=== PATIENT | female | born 1965 | race Caucasian/White ===

== ENCOUNTER 2020-11-06 15:18 | Emergency (ER) | payer OTHER, SELFPAY ==
--- NOTE | ~2020-11-06 | CT_ITS ---
EXAMINATION: CT ABDOMEN AND PELVIS WITH CONTRAST CLINICAL INFORMATION: Right flank pain. Right lower quadrant pain x1 month. Rule out stone, appendectomy, malignancy COMPARISON: 08/26/2019 TECHNIQUE: Multidetector volumetric images were obtained from the superior aspect of the liver through the pubic symphysis following administration 85 mL of Omnipaque 350 intravenous contrast. Sagittal and coronal reformatted images were obtained on the technologist's workstation. Oral contrast: No This CT examination was performed using dose optimization techniques as appropriate, variously including the following: *Automated exposure control *Adjustment of mA and/or kV according to patient size (this includes techniques or standardized protocols for targeted exams where dose is matched to indication/reason for exam; i.e. extremities or head) *Use of iterative reconstruction technique DLP: 964 mGy-cm FINDINGS: LUNG BASES: The visualized lung bases are unremarkable. LIVER, GALLBLADDER, AND BILIARY TREE: The liver is normal in size, shape, and attenuation. No focal hepatic lesion or biliary ductal dilatation is present. Status post cholecystectomy. Calcifications anterior to the inferior tip of the right lobe of the liver could reflect sequelae of prior fat necrosis. PANCREAS: Unremarkable. SPLEEN: Unremarkable. ADRENAL GLANDS: Unremarkable. KIDNEYS AND URETERS: The kidneys are normal in size, shape, and attenuation. No hydronephrosis, hydroureter, or calculi seen. No perinephric stranding. There is a calcification the right pelvis in image 66/85 which is felt to be a phlebolith adjacent to the left ureter which is seen slightly more anteriorly on the same image. There is no resultant hydroureter. BLADDER: Unremarkable. GASTROINTESTINAL TRACT: The small and large bowel are unremarkable. The appendix is unremarkable. ABDOMINAL WALL: There is a large fat-containing umbilical hernia extending into the patient's pannus. There is skin thickening and soft tissue stranding of the pannus overlying the right inguinal region. Soft tissue infection such as cellulitis could have this appearance. LYMPH NODES: Normal. VASCULAR: Normal caliber abdominal aorta with moderate calcified atherosclerotic changes. Retroaortic left renal vein. PELVIC VISCERA: High density in the region of the cervix could represent hemorrhage within a nabothian cyst. This was present previously and is unchanged. Otherwise normal CT appearance of the uterus and ovaries for age. OSSEOUS STRUCTURES: No acute or suspicious osseous abnormality. CT/CT abdomen pelvis w con IMPRESSION: There is skin thickening and soft tissue tissue stranding of the pannus overlying the right inguinal region. This could reflect soft tissue infection such as cellulitis. It is incompletely imaged. No additional findings to explain right-sided abdominal pain. No evidence of obstructive uropathy. Status post cholecystectomy. No biliary ductal dilatation. No evidence of colitis or diverticulitis.
[2020-11-06 15:42] VITALS: BP 118/63; PULSE 99; RESP 16; TEMP 36.9; O2SAT 95; BMI 47.2
--- NOTE | 2020-11-06 16:45 | ED.GENADULT ---
HPI - General Adult General Chief complaint: Abdominal Pain Stated complaint: flank pain Time Seen by Provider: 11/06/20 16:25 Source: patient Mode of arrival: ambulatory Limitations: no limitations History of Present Illness HPI narrative: 55-year-old female who presents emergency department for evaluation of right flank pain x1 half months. Patient states that the pain has been constant but waxes and wanes in intensity from 3/10 to 8/10. Over the past 1-2 days, the pain is radiating to her right lower abdomen. She states that the pain is associated with nausea but no vomiting. She denied frequency covered urgency or dysuria. She denied any change in her weight. She has not noticed any change in her bowel movements. She states that she weighs because she thought the pain would get better however her daughter, who was in nursing school, insisted that she go to the emergency department to be seen today since the pain changed in character. Related Data Allergies Allergy/AdvReac Type Severity Reaction Status Date / Time Penicillins [PENICILLINS] Allergy Intermediate RASH Unverified 04/01/20 15:52 Sulfa (Sulfonamide Allergy Intermediate RASH Unverified 04/01/20 15:52 Antibiotics) [SULFA (SULFONAMIDE ANTIBIOTICS)] oxycodone [From PERCOCET] Allergy Unknown HIVES Unverified 04/01/20 15:52 Review of Systems Review of Systems: Yes all other systems are reviewed and are negative [facility] Past Medical History [facility] Narrative: Past surgical history cholecystectomy, ectopic and 2 laparoscopic surgeries. The patient denies tobacco, alcohol and drug use. Medical History Diabetes Hypercholesteremia Hypertension Umbilical hernia Social History Social History Advance Directives: No Advance Directives Information Provided: Yes Physical Exam Vital Signs: Vital Signs: Last Vital Signs Temp 98.4 F 11/06/20 15:42 Pulse 99 11/06/20 15:42 Resp 16 11/06/20 15:42 BP 118/63 11/06/20 15:42 Pulse Ox 95 11/06/20 15:42 Body Mass Index 47.2 Const: General: cooperative and healthy appearing Orientation/consciousness: oriented to person and oriented to place Limitations: no limitations HENMT: Head: Yes normal to inspection, Yes normocephalic and Yes atraumatic Ears: external ears normal General nose exam: Normal external nose present Face and sinus: Yes normal facial exam Mouth: Normal oral and palatal mucosa present Throat: Yes posterior oropharynx normal Eyes: Periorbital: periorbital findings normal Eyelids: Yes eyelids normal Conjunctivae: conjunctivae normal Sclerae: sclerae normal Corneas: corneas normal Pupils: Equal, round and reactive pupils present Direct Ophthalmoscopy: normal light reflex Neck: Neck: Yes full ROM, Yes no lymphadenopathy, Yes no meningeal signs, Yes trachea midline and Yes supple Chest: Chest palpation & inspection: normal inspection of the chest and normal palpation of entire chest wall Resp: Effort & Inspection: normal respiratory effort and able to speak in complete sentences Auscultation: clear to auscultation bilaterally Cardio: Rate: regular rate Rhythm: regular rhythm Heart sounds: S1 normal heart sound present, S2 normal heart sound present and no murmurs GI: Inspection: Yes Abdominal panniculus present and Yes other (Umbilical hernia, nontender) Palpation (GI): Soft to palpation, Tenderness to palpation present (GI) (Moderate right-sided abdominal tenderness), no guarding, not rigid and No hepatosplenomegaly present : General: Yes no CVA tenderness Back/Spine/Pelvis: Back: no CVA tenderness Cervical Spine: normal cervical lordosis Thoracic/Lumbar Spine: thoracic and lumbar spine normal to inspection Skin: Lesions: no lesions Rashes: no rashes Wounds: no wounds Neuro: General: oriented to person, oriented to place and no meningeal signs Cranial nerves: Yes CN's II-XII intact bilaterally and Yes Equal, round and reactive pupils present Cognition (Neuro): normal cognition Motor exam (neuro): 5/5 motor strength present throughout Extrem: General: Yes normal to inspection and Yes full ROM Psych: Appearance: well kempt Mental Status: mental status grossly normal Speech and movement: Normal speech and movement present Affect: normal affect Attitude: cooperative Thought process: Normal thought process present Thought content: Normal thought content present Course Course Course Narrative: 55-year-old female who presents emergency department for evaluation of right flank and right lower abdominal pain x1 half months. Physical examination did reveal right-sided abdominal tenderness. Laboratory evaluation revealed a slight elevation of the patient's AST and ALT of 79 and 80 with an elevated glucose of 180 otherwise was unremarkable. Urinalysis was negative. CT scan of the abdomen pelvis with IV contrast did not reveal a clear etiology for the patient's pain. The patient does have a fat containing umbilical hernia. Patient also had some thickening of the skin of the right inguinal area but on physical examination there is no evidence of cellulitis in this area. This time, I do not have a clear cause for the patient's pain. I did discuss this with her. The patient will need to follow-up with PCP for re-evaluation and may need referral to a process environmental technician to further evaluate her abdominal pain. The patient did get relief of her pain with IV Toradol. She refused the IV Zofran. Patient was discharged home advised to take Tylenol ibuprofen for pain and to return if her symptoms get worse or she develops any new symptoms that are concerning to her. Medical Decision Making Lab Data Result diagrams: 11/06/20 16:58 11/06/20 16:58 Labs: Lab Results 11/06/20 11/06/20 11/06/20 Range/Units 16:58 16:58 16:58 WBC 6.8 (4.8-10.8) X10*3/uL RBC 4.40 (4.20-5.50) X10*6/uL Hgb 13.4 (12.0-16.0) g/dl Hct 39.9 (37-47) % MCV 90.7 (80-98) fL MCH 30.5 (27.0-33.0) pg MCHC 33.6 (31.0-35.0) g/dl RDW 13.3 (11.0-16.0) % Plt Count 185 (160-400) X10*3/uL MPV 9.7 (9.4-12.3) fL Immature Gran % (Auto) 0.3 (0.0-0.4) % Neut % (Auto) 33.3 L (45-73) % Lymph % (Auto) 54.7 H (20-40) % [place] % (Auto) 8.1 (2-11) % Eos % (Auto) 3.0 (0-4) % Baso % (Auto) 0.6 (0-2) % Lymph # (Auto) 3.7 (1.2-4.9) X10*3/uL [place] # (Auto) 0.6 (0.1-1.2) X10*3/uL Eos # (Auto) 0.2 (0.0-0.4) X10*3/uL Baso # (Auto) 0.0 (0.0-0.2) X10*3/uL Abs Immat Gran (auto) 0.02 (0.00-0.03) X10*3/uL Absolute Neuts (auto) 2.3 (2.0-8.3) X10*3/uL Absolute Nucleated RBC 0.000 (0.0-0.012) X10*3/uL Nucleated RBC % (auto) 0.0 (0.0-0.2) /100WBC Sodium 140 (135-145) mmol/L Potassium 4.1 (3.3-5.1) mmol/L Chloride 102 (96-108) mmol/L Carbon Dioxide 27 (22-29) mmol/L Anion Gap 15 (12-20) BUN 16 (9-16) mg/dL Creatinine 0.72 (0.5-1.4) mg/dL Estim Creat Clear Calc 101.9 Estimated GFR > 60 Random Glucose 180 H (60-115) mg/dL Calcium 9.3 (8.4-10.2) mg/dL Total Bilirubin 0.8 (0.0-1.0) mg/dL AST 79 H (5-31) U/L ALT 80 H (0-31) U/L Alkaline Phosphatase 58 (39-117) U/L Total Protein 8.0 (6.5-8.0) g/dL Albumin 3.9 (3.5-5.0) g/dL Lipase 35 (8-78) U/L Urine Color YELLOW Urine Appearance CLEAR Urine pH 5.5 (5.0-8.0) Ur Specific [place] >= 1.030 H (1.005-1.025) Urine Protein NEG (NEG-TRACE) MG/DL Urine Glucose (UA) NEG (NEG) MG/DL Urine Ketones NEG (NEG) MG/DL Urine Blood NEG (NEG) Urine Nitrite NEG (NEG) Ur Leukocyte Esterase NEG (NEG) Discharge Plan Discharge Clinical Impression: Abdominal pain Qualifiers: Abdominal location: unspecified location Qualified Code(s): R10.9 - Unspecified abdominal pain Patient Disposition: Home, Self-Care Instructions: Abdominal Pain (ED) Additional Instructions: Your blood work was unremarkable except for slight elevation in 2 liver enzymes (AST and ALT). Your urinalysis was normal. The CT scan of your abdomen and pelvis did not reveal a clear cause for your abdominal pain. The radiologist did see the umbilical hernia and you only had fat in the hernia with no intestines in the hernia suggesting that the hernia is not the cause of your pain as well. Take ibuprofen 200 mg pills, 2 pills every 6 hours as needed for pain. Take Tylenol (acetaminophen) 500 mg pills, 2 pills every 4 to 6 hours as needed for pain. Follow-up with your doctor in 2 days. You may need referral to a process environmental technician to help further delineate your pain. I did write down the name of our process environmental technician who is on-call. Please return to the emergency department if your symptoms get worse or if you develop any symptoms that are concerning to you. Referrals: Lucian Solomon [Physician] - 2 weeks
[2020-11-06] MEDS: Ketorolac Tromethamine 30 MG/ML VIAL IVPUSH (16:59)
[2020-11-06] MEDS: 0.9 % Sodium Chloride 1,000 ML 999 ML IV (17:00)
--- NOTE | 2020-11-06 17:00 | PC.NURSE ---
iv inserted, labs drawn, pt medicated per order- pt refusing zofran at this time, urine obtained, will continue to monitor.
[2020-11-06 17:06] LABS: MANUAL DIFF FLAG NO
[2020-11-06 17:08] LABS: Basophils Percent Auto 0.6 % (0-2); Eosinophils Absolute Auto 0.2 X10*3/uL (0.0-0.4); Hematocrit 39.9 % (37-47); Hemoglobin 13.4 g/dl (12.0-16.0); Imm Gran Abs Auto 0.02 X10*3/uL (0.00-0.03); Imm Gran Pct Auto 0.3 % (0.0-0.4); Lymphocytes Absolute Auto 3.7 X10*3/uL (1.2-4.9); Lymphocytes Percent Auto 54.7 % (20-40); Mean Corpuscular HGB Conc 33.6 g/dl (31.0-35.0); Mean Corpuscular Hemoglobin 30.5 pg (27.0-33.0); Mean Corpuscular Volume 90.7 fL (80-98); Mean Platelet Volume 9.7 fL (9.4-12.3); Monocytes Absolute Auto 0.6 X10*3/uL (0.1-1.2); Monocytes Percent Auto 8.1 % (2-11); Neutrophils Absolute Auto 2.3 X10*3/uL (2.0-8.3); Neutrophils Percent Auto 33.3 % (45-73); Platelet Count 185 X10*3/uL (160-400); Red Cell Distribution Width 13.3 % (11.0-16.0); White Blood Count 6.8 X10*3/uL (4.8-10.8)
[2020-11-06 17:10] LABS: Glucose Urine UA NEG (NEG); Leukocyte Esterase Urine NEG (NEG); Nitrite Urine NEG (NEG); PH 5.5 (5.0-8.0); Specific Gravity - Urine >= 1.030 (1.005-1.025); Urine Blood NEG (NEG); Urine Ketones NEG (NEG); Urine Protein NEG (NEG-TRACE)
[2020-11-06 17:11] LABS: Appearance Urine CLEAR; Color Urine YELLOW
[2020-11-06 17:30] LABS: Alanine Aminotransferase 80 U/L (0-31); Albumin Level 3.9 g/dL (3.5-5.0); Alkaline Phosphatase 58 U/L (39-117); Anion Gap 15 (12-20); Aspartate Amino Transferase 79 U/L (5-31); Bilirubin Total 0.8 mg/dL (0.0-1.0); Blood Urea Nitrogen 16 mg/dL (9-16); Calcium 9.3 mg/dL (8.4-10.2); Carbon Dioxide 27 mmol/L (22-29); Chloride 102 mmol/L (96-108); Creatinine Clr Calc Pharmacy 101.9; Estimated Glomerular Filt Rate > 60; Glucose Random 180 mg/dL (60-115); Lipase 35 U/L (8-78); Potassium 4.1 mmol/L (3.3-5.1); Sodium 140 mmol/L (135-145)
[2020-11-06] MEDS: iohexoL 350 MG/ML 100 ML INFUS..BTL IV (18:09)
--- NOTE | 2020-11-06 18:44 | PC.NURSE ---
ancillary staff reported to this fha underwriter that the patient appeared to be recording incident across ed. Each time the patient viewed staff observing her, the patient would then shut off the light on her phone, lay it into her lap and then place head back on bed. This behavior was observed approximately 3 times. This fha underwriter approached the patient and asked if she was recording. Pt denied saying i accidentally turned by flash light on. this is bullshit. I don't' understand. Charge nurse aware. Security aware.
--- NOTE | 2020-11-06 18:50 | PC.NURSE ---
security to bedside. pt allowed officer to view phone to assess if video was taken. per security, phone appeared to be clear of any video
[2020-11-06 19:28] VITALS: BP 120/74; PULSE 94; RESP 16; O2SAT 99
== END 2020-11-06 19:30 | disposition home or self-care (01) ==
PROVIDERS: Emergency Provider Emergency Medicine Emergency Medical Services; PCP Internal Medicine
DX: R10.9 Unspecified abdominal pain (principal); R79.89 Other specified abnormal findings of blood chemistry; E11.9 Type 2 diabetes mellitus without complications; E78.00 Pure hypercholesterolemia, unspecified; I10 Essential (primary) hypertension; K42.9 Umbilical hernia without obstruction or gangrene
CPT/HCPCS: 36415; 74177; 80053; 81003; 83690; 85025; 96361; 96374; 96375; 99284; J1885; Q9967

== ENCOUNTER 2021-03-27 10:24 | Emergency (ER) | payer OTHER, SELFPAY ==
--- NOTE | ~2021-03-27 | XR_ITS ---
EXAMINATION: XR CHEST CLINICAL INFORMATION: Dizziness COMPARISON: 12/20/2017 TECHNIQUE: AP portable upright view of the chest FINDINGS: Lungs are clear. No consolidation, pneumothorax, or pleural effusion. Cardiac and mediastinal contours are normal. Pulmonary vasculature is unremarkable. Osseous structures are unremarkable. XR/XR chest 1V IMPRESSION: No acute cardiopulmonary findings
--- NOTE | ~2021-03-27 | CT_ITS ---
EXAMINATION: CT HEAD WITHOUT CONTRAST CLINICAL INFORMATION: Dizziness. COMPARISON: None TECHNIQUE: Contiguous axial imaging was performed from the skull base to vertex without intravenous administration of contrast. This CT examination was performed using dose optimization techniques as appropriate, variously including the following: *Automated exposure control *Adjustment of mA and/or kV according to patient size (this includes techniques or standardized protocols for targeted exams where dose is matched to indication/reason for exam; i.e. extremities or head) *Use of iterative reconstruction technique DLP: 824 mGy-cm FINDINGS: There is no evidence of acute intracranial hemorrhage or territorial infarction. No abnormal mass effect or midline shift is seen. Bateman to white matter differentiation is well preserved. No extra-axial fluid collections are identified. The ventricles are normal in size. There is no abnormal attenuation within the brain parenchyma. The osseous structures and soft tissues are normal. The mastoid air cells and visualized portions of the paranasal sinuses are well aerated. CT/CT head/brain wo con IMPRESSION: No acute intracranial process seen.
[2021-03-27 10:43] VITALS: BP 146/90; PULSE 115; RESP 18; TEMP 35.5; O2SAT 96; BMI 45.7
--- NOTE | 2021-03-27 11:26 | ECG_ITS ---
Test Reason : VERTIGO Blood Pressure : / mmHG Vent. Rate : 088 BPM Atrial Rate : 088 BPM P-R Int : 168 ms QRS Dur : 112 ms QT Int : 402 ms P-R-T Axes : 025 005 003 degrees QTc Int : 486 ms Normal sinus rhythm Inferior infarct (cited on or before 25-FEB-2014) Cannot rule out Anterior infarct (cited on or before 25-FEB-2014) Abnormal ECG When compared with ECG of 21-DEC-2017 07:27, No significant change was found Referred By: Melita Carter Electronically Signed By:BRADY GATICA
[2021-03-27] MEDS: 0.9 % Sodium Chloride 1,000 ML 999 ML IVCONT (11:58)
[2021-03-27] MEDS: Meclizine HCl 25 MG TABLET PO (11:59)
[2021-03-27] MEDS: ondansetron HCL 4 MG/2 ML VIAL IVPUSH (11:59)
[2021-03-27] MEDS: diphenhydrAMINE HCL 50 MG/ML VIAL 12.5 MG IVPUSH (11:59)
[2021-03-27 12:00] LABS: MANUAL DIFF FLAG NO
[2021-03-27 12:03] LABS: Basophils Percent Auto 0.6 % (0-2); Eosinophils Absolute Auto 0.1 X10*3/uL (0.0-0.4); Eosinophils Percent Auto 1.9 % (0-4); Hemoglobin 14.2 g/dl (12.0-16.0); Imm Gran Abs Auto 0.01 X10*3/uL (0.00-0.03); Imm Gran Pct Auto 0.3 % (0.0-0.4); Lymphocytes Absolute Auto 1.8 X10*3/uL (1.2-4.9); Lymphocytes Percent Auto 49.7 % (20-40); Mean Corpuscular HGB Conc 34.6 g/dl (31.0-35.0); Mean Corpuscular Hemoglobin 31.6 pg (27.0-33.0); Mean Corpuscular Volume 91.3 fL (80-98); Monocytes Absolute Auto 0.3 X10*3/uL (0.1-1.2); Monocytes Percent Auto 8.1 % (2-11); Neutrophils Absolute Auto 1.4 X10*3/uL (2.0-8.3); Neutrophils Percent Auto 39.4 % (45-73); Platelet Count 150 X10*3/uL (160-400); Red Blood Count 4.49 X10*6/uL (4.20-5.50); Red Cell Distribution Width 13.1 % (11.0-16.0); White Blood Count 3.6 X10*3/uL (4.8-10.8)
--- NOTE | 2021-03-27 12:03 | ED_ITS ---
HPI - Dizziness General Chief Complaint: Dizziness Stated Complaint: dizziness Time Seen by Provider: 03/27/21 11:08 Source: patient Mode of arrival: ambulatory History of Present Illness HPI Narrative: 55-year-old female with a past medical history of diabetes, hyperlipidemia, HTN, umbilical hernia, to the ED complaining of dizziness, valerio sea, and generalized fatigue since this morning. Dizziness described as falling out of an airplane, reports sx are worse with position changes/head movement. Also reports intermittent heart palpitations x1 month, states she does not feel right. Denies headache, visual change/loss, vomiting, abdominal pain, diarrhea, dysuria/hematuria, cough, fever/chills, numbness, focal weakness MD elicited complaint: dizziness Related Data Previous Rx's Medication Instructions Recorded meclizine 25 mg tablet 25 mg PO TID PRN #14 tab 03/27/21 ondansetron HCl 4 mg tablet 4 mg PO Q8H PRN #10 tab 03/27/21 (Zofran) Allergies Allergy/AdvReac Type Severity Reaction Status Date / Time Penicillins [PENICILLINS] Allergy Intermediate RASH Verified 03/27/21 10:43 Sulfa (Sulfonamide Allergy Intermediate RASH Verified 03/27/21 10:43 Antibiotics) [SULFA (SULFONAMIDE ANTIBIOTICS)] oxycodone [From PERCOCET] Allergy Unknown HIVES Verified 03/27/21 10:43 Review of Systems Review of Systems: Constitutional: No Fever, No Chills, + Fatigue, No Malaise ENT/Mouth: No Hearing loss, No Ear Pain, No Nasal Congestion, No sore throat, No Rhinorrhea, No Swallowing Difficulty Eyes: No Eye Pain, No Swelling, No Vision Changes Cardiovascular: No Chest Pain, No SOB, No Edema, No Palpitations Respiratory: No Cough, No Dyspnea Gastrointestinal: + Nausea, No Vomiting, No Diarrhea, No Constipation, No Abdominal pain Genitourinary: No Dysuria, No Urinary Frequency, No Hematuria, No Urinary Incontinence, No Flank Pain Musculoskeletal: No joint pain, No Myalgias, No Joint Swelling Skin: No Skin Lesions, No rash Neuro: + Weakness, No Numbness, No Paresthesias, No Loss of Consciousness, + Dizziness, No Headache Yes all other systems are reviewed and are negative Neurologic: Denies Abnormal speech present [facility] Past Medical History Attestation statement: The following information was validated with the patient. Medical History Diabetes Hypercholesteremia Hypertension Umbilical hernia Social History Social History Patient Tobacco Use Status: Never used Tobacco Use of substances other than those prescribed or required for medical reasons: No Advance Directives: No Advance Directives Information Provided: No Physical Exam Vital Signs: Vital Signs: Last Vital Signs Temp 97.6 F 03/27/21 12:16 Pulse 86 03/27/21 13:50 Resp 16 03/27/21 13:50 BP 123/69 03/27/21 13:50 Pulse Ox 96 03/27/21 13:50 Body Mass Index 45.7 Const: General: cooperative, healthy appearing and no acute distress Orientation/consciousness: patient oriented x3 Limitations: no limitations HENMT: Head: Yes normal to inspection Ears: hearing grossly normal bilaterally General nose exam: Normal external nose present Face and sinus: Yes normal facial exam Throat: Yes posterior oropharynx normal Eyes: General: appearance normal, both eyes and all related structures Corneas: corneas normal Pupils: Equal, round and reactive pupils present EOM: EOMs intact bilaterally and Nystagmus present (Leftward horizontal nystagmus) Direct Ophthalmoscopy: no photophobia Neck: Neck: Yes normal visual inspection and Yes no meningeal signs Resp: Effort & Inspection: normal respiratory effort Auscultation: clear to auscultation bilaterally, no rales and no wheezes Cardio: Rate: regular rate Heart sounds: S1 normal heart sound present and S2 normal heart sound present GI: Inspection: Yes normal to inspection Palpation (GI): Soft to palpation, nontender, no guarding and not rigid : General: Yes no CVA tenderness Back/Spine/Pelvis: Back: no CVA tenderness Skin: Rashes: no rashes Wounds: no wounds Neuro: General: patient oriented x3, gait normal (Ambulating with slow steady gait. No ataxia), tone normal, moves all extremities, no meningeal signs and no focal motor deficits Cranial nerves: Yes CN's II-XII intact bilaterally, Yes Equal, round and reactive pupils present and Yes Nystagmus present (Leftward horizontal nystagmus) Cognition (Neuro): normal cognition Speech: No Abnormal speech present Gait exam (Neuro): Normal gait present Motor exam (neuro): 5/5 motor strength present throughout, Pronator motor function not present and no tremor noted Coordination: [id number] test normal Romberg Test: Negative Extrem: General: Yes normal to inspection Course Course Course Narrative: -1240-- leukopenia 3.6, AST/ALT acute on chronically elevated higher than priors -troponin negative. TSH WNL. COVID-19 negative XR chest 1V IMPRESSION: No acute cardiopulmonary findings -orthostatic vital signs negative CT head/brain wo con IMPRESSION: No acute intracranial process seen. >>1440--On re-evaluation patient reports sx improvement however when attempted to stand/ambulate very unsteady on feet/had to sit down/almost fell over from dizziness > plan for admission. Patient is agreeable - hospitalist spoke to patient she is now refusing admission, would like to go home, afraid of being in the hospital during these times reports has at home/children that will help her -UA not infected. Discussed with patient worsening signs and symptoms and strict return precautions and need to follow-up with PCP/ENT. She verbalized understanding feel safe for discharge home MDM - Dizziness MDM Narrative Medical decision making narrative: 55-year-old female with a past medical history of diabetes, hyperlipidemia, HTN, umbilical hernia, to the ED complaining of dizziness, nausea, and generalized fatigue since this morning. Dizziness described as falling out of an airplane, reports sx are worse with position changes/head movement. On exam tachycardic, dizziness elicited on position changes, leftward nystagmus noted, no focal neuro deficits, lungs CTA, abdomen soft is nontender. Ambulating with slow steady gait. Concern for BPPV vs metabolic abnormalities vs ACS/thyroid dysfunction. Low concern for PE, CVT, SAH, CVA. Will obtain head CT to rule out mass Plan: EKG, labs, UA, CXR, head CT, IVF, symptomatic treatment, reassess Medical Records Attestation: I reviewed the patient's medical records. Lab Data Attestation: I reviewed the patient's lab results. Result diagrams: 03/27/21 11:56 03/27/21 11:56 Labs: Lab Results 03/27/21 03/27/21 03/27/21 Range/Units 11:56 11:56 11:56 WBC 3.6 L (4.8-10.8) X10*3/uL RBC 4.49 (4.20-5.50) X10*6/uL Hgb 14.2 (12.0-16.0) g/dl Hct 41.0 (37-47) % MCV 91.3 (80-98) fL MCH 31.6 (27.0-33.0) pg MCHC 34.6 (31.0-35.0) g/dl RDW 13.1 (11.0-16.0) % Plt Count 150 L (160-400) X10*3/uL MPV 10.0 (9.4-12.3) fL Immature Gran % (Auto) 0.3 (0.0-0.4) % Neut % (Auto) 39.4 L (45-73) % Lymph % (Auto) 49.7 H (20-40) % Fergus % (Auto) 8.1 (2-11) % Eos % (Auto) 1.9 (0-4) % Baso % (Auto) 0.6 (0-2) % Lymph # (Auto) 1.8 (1.2-4.9) X10*3/uL Fergus # (Auto) 0.3 (0.1-1.2) X10*3/uL Eos # (Auto) 0.1 (0.0-0.4) X10*3/uL Baso # (Auto) 0.0 (0.0-0.2) X10*3/uL Abs Immat Gran (auto) 0.01 (0.00-0.03) X10*3/uL Absolute Neuts (auto) 1.4 L (2.0-8.3) X10*3/uL Absolute Nucleated RBC 0.000 (0.0-0.012) X10*3/uL Nucleated RBC % (auto) 0.0 (0.0-0.2) /100WBC Sodium 138 (135-145) mmol/L Potassium 4.3 (3.3-5.1) mmol/L Chloride 105 (96-108) mmol/L Carbon Dioxide 23 (22-29) mmol/L Anion Gap 14 (12-20) BUN 8 L (9-16) mg/dL Creatinine 0.73 (0.5-1.4) mg/dL Estim Creat Clear Calc 102.4 Estimated GFR > 60 Random Glucose 277 H (60-115) mg/dL Calcium 9.0 (8.4-10.2) mg/dL Magnesium 1.9 (1.6-2.6) mg/dL Total Bilirubin 0.8 (0.0-1.0) mg/dL Direct Bilirubin 0.3 (0.0-0.5) mg/dL AST 187 H (5-31) U/L ALT 186 H (0-31) U/L Alkaline Phosphatase 68 (39-117) U/L Troponin I High Sens < 3.5 (<3.5-17.0) ng/L Total Protein 7.2 (6.5-8.0) g/dL Albumin 3.6 (3.5-5.0) g/dL TSH 0.64 (0.32-4.0) uIU/mL Urine Color Urine Appearance Urine pH (5.0-8.0) Ur Specific [place] (1.005-1.025) Urine Protein (NEG-TRACE) MG/DL Urine Glucose (UA) (NEG) MG/DL Urine Ketones (NEG) MG/DL Urine Blood (NEG) Urine Nitrite (NEG) Ur Leukocyte Esterase (NEG) Urine RBC (0) /HPF Urine WBC (0-4) /HPF Ur Squamous Epith Cells /LPF Urine Bacteria /LPF COVID-19 (LORIE) (Negative) COVID-19 Clin Com 03/27/21 03/27/21 Range/Units 11:56 15:50 WBC (4.8-10.8) X10*3/uL RBC (4.20-5.50) X10*6/uL Hgb (12.0-16.0) g/dl Hct (37-47) % MCV (80-98) fL MCH (27.0-33.0) pg MCHC (31.0-35.0) g/dl RDW (11.0-16.0) % Plt Count (160-400) X10*3/uL MPV (9.4-12.3) fL Immature Gran % (Auto) (0.0-0.4) % Neut % (Auto) (45-73) % Lymph % (Auto) (20-40) % Fergus % (Auto) (2-11) % Eos % (Auto) (0-4) % Baso % (Auto) (0-2) % Lymph # (Auto) (1.2-4.9) X10*3/uL Fergus # (Auto) (0.1-1.2) X10*3/uL Eos # (Auto) (0.0-0.4) X10*3/uL Baso # (Auto) (0.0-0.2) X10*3/uL Abs Immat Gran (auto) (0.00-0.03) X10*3/uL Absolute Neuts (auto) (2.0-8.3) X10*3/uL Absolute Nucleated RBC (0.0-0.012) X10*3/uL Nucleated RBC % (auto) (0.0-0.2) /100WBC Sodium (135-145) mmol/L Potassium (3.3-5.1) mmol/L Chloride (96-108) mmol/L Carbon Dioxide (22-29) mmol/L Anion Gap (12-20) BUN (9-16) mg/dL Creatinine (0.5-1.4) mg/dL Estim Creat Clear Calc Estimated GFR Random Glucose (60-115) mg/dL Calcium (8.4-10.2) mg/dL Magnesium (1.6-2.6) mg/dL Total Bilirubin (0.0-1.0) mg/dL Direct Bilirubin (0.0-0.5) mg/dL AST (5-31) U/L ALT (0-31) U/L Alkaline Phosphatase (39-117) U/L Troponin I High Sens (<3.5-17.0) ng/L Total Protein (6.5-8.0) g/dL Albumin (3.5-5.0) g/dL TSH (0.32-4.0) uIU/mL Urine Color YELLOW Urine Appearance CLEAR Urine pH 5.5 (5.0-8.0) Ur Specific [place] >= 1.030 H (1.005-1.025) Urine Protein TRACE (NEG-TRACE) MG/DL Urine Glucose (UA) >=1000 H (NEG) MG/DL Urine Ketones 5 (NEG) MG/DL Urine Blood NEG (NEG) Urine Nitrite NEG (NEG) Ur Leukocyte Esterase NEG (NEG) Urine RBC 0 (0) /HPF Urine WBC 0-2 (0-4) /HPF Ur Squamous Epith Cells 1+ /LPF Urine Bacteria NONE /LPF COVID-19 (LORIE) Negative (Negative) COVID-19 Clin Com See Note ECG Data Attestation: I personally reviewed and interpreted this ECG as follows: ECG interpretation date: 03/27/21 ECG interpretation time: 12:12 Interpretation: EKG normal sinus rhythm with rate of 88. inverted T waves in lead III Discharge Plan Discharge Clinical Impression: Benign paroxysmal positional vertigo Patient Disposition: Home, Self-Care Instructions: Benign Paroxysmal Positional Vertigo (ED) Additional Instructions: Your workup was reassuring today in the ED Her head CT was unremarkable Zofran as antinausea medication, take as needed Meclizine helps with dizziness, take as needed Is very important for you to stay hydrated at home, drink plenty of fluids, rest, please follow-up with your doctor and an ENT specialist If her symptoms persist or worsen, your unable to walk, dizziness changes, your chest pain, headache, or visual loss please return to the ED Prescriptions: New ondansetron HCl [Zofran] 4 mg tablet 4 mg PO Q8H PRN (Reason: nausea and vomiting) Qty: 10 RF: 0 meclizine 25 mg tablet 25 mg PO TID PRN (Reason: dizziness) Qty: 14 RF: 0 Referrals: Milton Torrez MD [Primary Care Provider] - 2 days Bethel Ventura [Physician] - 3 days
[2021-03-27 12:13] VITALS: BP 119/62; BP 135/73; PULSE 84
[2021-03-27 12:14] VITALS: BP 137/75; PULSE 96
[2021-03-27 12:14] LABS: COVID-19 Test Negative (Negative)
[2021-03-27 12:16] VITALS: BP 119/62; PULSE 84; RESP 18; TEMP 36.4; O2SAT 99
[2021-03-27 12:21] LABS: Troponin-I High Sensitivity < 3.5 ng/L (<3.5-17.0)
[2021-03-27 12:32] LABS: Alanine Aminotransferase 186 U/L (0-31); Albumin Level 3.6 g/dL (3.5-5.0); Alkaline Phosphatase 68 U/L (39-117); Anion Gap 14 (12-20); Aspartate Amino Transferase 187 U/L (5-31); Bilirubin Direct 0.3 mg/dL (0.0-0.5); Bilirubin Total 0.8 mg/dL (0.0-1.0); Blood Urea Nitrogen 8 mg/dL (9-16); Carbon Dioxide 23 mmol/L (22-29); Chloride 105 mmol/L (96-108); Creatinine Clr Calc Pharmacy 102.4; Estimated Glomerular Filt Rate > 60; Glucose Random 277 mg/dL (60-115); Magnesium 1.9 mg/dL (1.6-2.6); Potassium 4.3 mmol/L (3.3-5.1); Sodium 138 mmol/L (135-145); Total Protein 7.2 g/dL (6.5-8.0)
--- NOTE | 2021-03-27 12:32 | PC.NURSE ---
Pt reports sudden onset dizziness while in bed, states it felt like i was falling out of a plane , reports 3-4 dizzy episodes as described but at present just feels normal dizzy SPeech clear, neuros are intact. skin pwd. speaking full sentences. denies pain, sob. family at bedside
[2021-03-27 12:49] LABS: Thyroid Stimulating Hormone 0.64 uIU/mL (0.32-4.0)
[2021-03-27] MEDS: LORazepam 2 MG/ML VIAL 1 MG IVPUSH (13:48)
[2021-03-27 13:50] VITALS: BP 123/69; PULSE 86; RESP 16; O2SAT 96
[2021-03-27 15:57] LABS: Appearance Urine CLEAR; Color Urine YELLOW; Glucose Urine UA >=1000 MG/DL (NEG); Leukocyte Esterase Urine NEG (NEG); Nitrite Urine NEG (NEG); PH 5.5 (5.0-8.0); Specific Gravity - Urine >= 1.030 (1.005-1.025); Urine Blood NEG (NEG); Urine Ketones 5 MG/DL (NEG); Urine Protein TRACE MG/DL (NEG-TRACE)
[2021-03-27 16:08] LABS: RBC Urine 0 /HPF (0); Squamous Epithelial Cell Urine 1+ /LPF; WBC Urine 0-2 /HPF (0-4)
== END 2021-03-27 16:43 | disposition home or self-care (01) ==
PROVIDERS: Physician Assistant; Emergency Provider Emergency Medicine; PCP Internal Medicine
DX: H81.13 Benign paroxysmal vertigo, bilateral (principal); I10 Essential (primary) hypertension; E78.5 Hyperlipidemia, unspecified; Z20.822 Contact with and (suspected) exposure to COVID-19; Z79.899 Other long term (current) drug therapy
CPT/HCPCS: 36415; 70450; 71045; 80048; 80076; 81001; 83735; 84443; 84484; 85025; 87635; 93005; 96365; 96375; 99284; J1200; J2060; J2405

== ENCOUNTER 2023-05-22 23:41 | Emergency (ER) | payer OTHER, SELFPAY ==
--- NOTE | 2023-05-22 | ECG_ITS ---
Test Reason : CHEST PAIN Blood Pressure : / mmHG Vent. Rate : 109 BPM Atrial Rate : 109 BPM P-R Int : 176 ms QRS Dur : 108 ms QT Int : 344 ms P-R-T Axes : 025 001 005 degrees QTc Int : 463 ms Sinus tachycardia RSR' or QR pattern in V1 suggests right ventricular conduction delay Inferior infarct (cited on or before 25-FEB-2014) Cannot rule out Anterior infarct (cited on or before 25-FEB-2014) Abnormal ECG When compared with ECG of 27-MAR-2021 12:12, No significant change was found Heart rate has increased Referred By: Generic ED Physician Electronically Signed By:VIDA LOPEZ MD
--- NOTE | ~2023-05-22 | CT_ITS ---
EXAMINATION: CT ANGIOGRAM HEAD CT ANGIOGRAM NECK CLINICAL INFORMATION: Reason for Exam dizziness, neck pain, headache COMPARISON: None. TECHNIQUE: Test bolus sequences followed by intravenous administration 85 mL of Omnipaque 350. Helical imaging was performed in the axial plane from the aortic arch to the skull vertex. Delayed postcontrast imaging of the head was also performed. The data was processed at the environmental health technologist's workstation for generation of MIP sequences. Angled MIPs and volume rendered reformatted images were also generated at an offline 3D workstation. Stenoses are assessed in accordance with Martell et al. Quantification of Carotid Stenosis on CT Angiography. AJR 2006. 27(1):13-19. [address] CT examination was performed using dose optimization techniques as appropriate, variously including the following: *Automated exposure control *Adjustment of mA and/or kV according to patient size (this includes techniques or standardized protocols for targeted exams where dose is matched to indication/reason for exam; i.e. extremities or head) *Use of iterative reconstruction technique DLP: 2429 mGy-cm FINDINGS: CT HEAD: The ventricles and sulci are normal in size and configuration without significant volume loss or hydrocephalus. There is no abnormal attenuation within the brain parenchyma. No territorial loss of nicholas-white differentiation. No acute intracranial hemorrhage or extra-axial fluid collection. No mass lesion, significant mass effect, or herniation pattern. No pathologic intra-axial enhancement or regional oligemia. Elongated globes in the AP dimension, particularly on the right which may be seen in the setting of axial myopia. Paranasal sinuses and mastoid air cells are well aerated. High riding left jugular bulb, which is dehiscent into the left hypotympanum as well as with the adjacent left vestibular aqueduct, which can be correlated clinically for left-sided pulsatile tinnitus. Well-corticated curvilinear lucency traversing the dorsal cortex of the clivus and extending ventrally to the right of midline, presumed prominent diploic vein versus notochordal remnant. CTA HEAD: No hemodynamically significant stenosis or occlusion in the anterior or posterior circulation. Mild calcific plaque along the carotid siphons without luminal stenosis. Incidental JEFF trifurcation. Extradural origin of the right PICA. No aneurysms and no high flow vascular malformations. Timing of the contrast bolus allows assessment of the major dural venous sinuses, which all opacify normally CTA NECK: Suboptimal contrast bolus timing. Classic 3 vessel branching pattern of the aortic arch. Mild calcific plaque of the aortic arch and right subclavian artery origin. Artifact compromises diagnostic assessment of the proximal cervical vasculature.The common carotid arteries are widely patent. Atherosclerosis of the bilateral carotid bifurcations without significant stenosis. Widely patent internal carotid arteries. Retropharyngeal course of the bilateral common carotid, internal, and proximal external carotid arteries. The vertebral arteries are codominant. Limited diagnostic assessment of the vertebral artery origins, particularly on the left. Both vertebral arteries are widely patent throughout their extracranial cervical course. CT NECK: Elongated and ossified styloid processes can be correlated clinically for signs of Stark syndrome. Nonspecific enlargement of the bilateral parotid and mandibular glands. Partially herniated sublingual glands into the subarticular space via bilateral mylohyoid boutonniere defects. Diffuse thyromegaly and glandular heterogeneity, noting artifact through this region limits assessment. Straightening of the normal cervical lordosis. CT/CT angio head neck IMPRESSION: 1. No acute intracranial findings. 2. High riding left jugular bulb, which is dehiscent into the left hypotympanum as well as with the adjacent left vestibular aqueduct, which can be correlated clinically for left-sided pulsatile tinnitus. 3. No acute arterial occlusion or hemodynamically significant stenosis within the head or neck. No intracranial saccular aneurysm or high flow vascular malformation. 4. Elongated and ossified styloid processes can be correlated clinically for signs of Stark syndrome. 5. Diffuse thyromegaly and glandular heterogeneity that can be correlated with thyroid function tests and further evaluated with thyroid ultrasound.
--- NOTE | ~2023-05-22 | XR_ITS ---
EXAMINATION: XR CHEST CLINICAL INFORMATION: Chest pain COMPARISON: Chest radiograph 03/27/2021 TECHNIQUE: Frontal view of the chest was obtained. FINDINGS: No significant abnormality is noted involving the heart, lungs, mediastinum, bony thorax or soft tissues. XR/XR chest 1V IMPRESSION: Unremarkable examination.
[2023-05-22 23:52] VITALS: BP 154/97; PULSE 106; RESP 18; TEMP 36.5; O2SAT 97; BMI 52.3
[2023-05-23 00:29] LABS: Basophils Percent Auto 0.4 % (0-2); Eosinophils Absolute Auto 0.1 X10*3/uL (0.0-0.4); Eosinophils Percent Auto 1.9 % (0-4); Imm Gran Abs Auto 0.01 X10*3/uL (0.00-0.03); Imm Gran Pct Auto 0.1 % (0.0-0.4); Lymphocytes Absolute Auto 4.4 X10*3/uL (1.2-4.9); Lymphocytes Percent Auto 58.7 % (20-40); MANUAL DIFF FLAG NO; Mean Corpuscular HGB Conc 33.3 g/dl (31.0-35.0); Mean Corpuscular Hemoglobin 30.9 pg (27.0-33.0); Mean Corpuscular Volume 92.6 fL (80.0-98.0); Mean Platelet Volume 9.6 fL (9.4-12.3); Monocytes Absolute Auto 0.6 X10*3/uL (0.1-1.2); Monocytes Percent Auto 7.9 % (2-11); Neutrophils Absolute Auto 2.3 x10*3/uL (2.0-8.3); Platelet Count 171 X10*3/uL (160-400); Red Blood Count 4.21 X10*6/uL (4.20-5.50); White Blood Count 7.5 X10*3/uL (4.8-10.8)
[2023-05-23 00:34] VITALS: BP 143/83; PULSE 11; PULSE 111; RESP 20
--- NOTE | 2023-05-23 00:38 | ED_ITS ---
HPI - Chest Pain General Chief Complaint: Chest Pain Stated Complaint: Chest pain Time Seen by Provider: 05/23/23 00:34 Source: patient Mode of arrival: ambulatory Limitations: no limitations History of Present Illness HPI narrative: 58 yo female with PMH of HTN, HLD, DM, obesity, LISSETTE on CPAP here with c/o intermittent dizziness and room spinning upon waking every morning. Today it was much worse with a headache, nausea and all day she felt chest pain going into neck, back and L upper arm. No chest pain with exertion recently. no head or neck trauma, no neck manipulation. She feels off with her head she states. MD complaint: chest pain Onset (ago): hour(s) (since this AM) Timing of current episode: constant Prior episodes: Yes Onset: during rest Pain location: substernal Pain radiation: left arm and neck Severity: moderate Quality: tightness Relieving factors: nothing Exacerbating factors: nothing Associated symptoms: dyspnea and other (headache, dizziness, feels off ) Treatment prior to arrival: none Related Data Previous Rx's Medication Instructions Recorded meclizine 25 mg tablet 25 mg PO TID PRN dizziness #14 tabs 03/27/21 ondansetron HCl 4 mg tablet 4 mg PO Q8H PRN nausea and 03/27/21 (Zofran) vomiting #10 tabs Allergies Allergy/AdvReac Type Severity Reaction Status Date / Time Penicillins [PENICILLINS] Allergy Intermediate RASH Verified 03/27/21 10:43 Sulfa (Sulfonamide Allergy Intermediate RASH Verified 03/27/21 10:43 Antibiotics) [SULFA (SULFONAMIDE ANTIBIOTICS)] oxycodone [From PERCOCET] Allergy Unknown HIVES Verified 03/27/21 10:43 Review of Systems 2 Review of Systems: Constitutional : No Weight loss, No Fever, No Chills Cardiovascular : pos Chest Pain, pos SOB, pos Dyspnea on Exertion, No Orthopnea, No Edema, No Palpitations Respiratory : No Cough, No Sputum Gastrointestinal : pos Nausea, No Vomiting, No Diarrhea, No abdominal Pain, No Hematochezia, No Melena Genitourinary : No Dysuria, No Urinary Frequency Musculoskeletal : No joint pain, No Myalgias, No Joint Swelling Skin : No Skin Lesions, No rash Neuro : No Weakness, No Numbness, pos Dizziness, pos Headache Psych : No Anxiety/Panic, No Depression All other systems reviewed and are negative PMFSH Past Medical History Attestation statement: The following information was validated with the patient. Source: old records reviewed Medical History Hypercholesteremia Hypertension Umbilical hernia Diabetes Social History Social History Patient Tobacco Use Status: Never used Tobacco Smoked in Last 30 Days: No Use of substances other than those prescribed or required for medical reasons: No Advance Directives: No Advance Directives Information Provided: Yes Physical Exam 2 Vital Signs: Vital Signs: Last Vital Signs Temp 97.7 F 05/22/23 23:52 Pulse 111 H 05/23/23 02:18 Resp 16 05/23/23 02:18 BP 113/85 05/23/23 02:18 Pulse Ox 94 05/23/23 02:18 O2 Del Method Room Air 05/23/23 02:18 BMI result Body Mass Index 52.3 Appearance: Alert. Oriented X3. No acute distress. Eyes: Pupils equal, round and reactive to light. ENT: Pharynx normal. Neck: Normal inspection. Neck supple. CVS: Normal heart rate and rhythm. Pulses normal. Respiratory: No respiratory distress. Breath sounds normal. Abdomen: Soft and nontender. Skin: Skin warm and dry. Normal skin color. Normal skin turgor. Extremities: No lower extremity edema. No calf ttp Neuro: Oriented X 3. No motor deficit. No sensory deficit. Medications Administered Discontinued Medications Generic Name Dose Route Start Last Admin Trade Name Freq PRN Reason Stop Dose Admin Iohexol 85 ml 05/23/23 01:34 05/23/23 01:35 Iohexol 350 Mg/Ml 100 Ml Infus..Btl IV 05/23/23 01:35 85 ml ONCE ONE Administration Medical Decision Making Medical Decision Making MDM Narrative: 58 yo female with PMH of HTN, HLD, DM, obesity, LISSETTE on CPAP here with c/o headaches, dizziness on and off x 1 month now feels weird. At this time she is NIH 0 and has no focal deficits but her symptoms of dizziness all day, headaches and neck pain is odd. She also notes chest pain all day - will need EKG, troponin, ddimer and CXR. Differential Diagnosis Differential Diagnoses: The differential diagnosis associated with the presentation includes ACS, VTE, stroke, vertebral dissection Admission/Observation Consideration of admission/observation: Escalation of care including admission/observation considered patient does not want to stay in the hospital - discussed with patient and daughter - trop flat, ddimer negative, EKG nonischemic and unchanged CTA no acute stroke and symptoms x 1 month in the AM only then resolve suspect CPAP issue Lab Data MDM Lab Attestation statement: I reviewed the patient's lab results. 05/23/23 00:23 05/23/23 00:23 Labs: Lab Results 05/23/23 Range/Units 00:23 WBC 7.5 (4.8-10.8) X10*3/uL RBC 4.21 (4.20-5.50) X10*6/uL Hgb 13.0 (12.0-16.0) g/dl Hct 39.0 (37.0-47.0) % MCV 92.6 (80.0-98.0) fL MCH 30.9 (27.0-33.0) pg MCHC 33.3 (31.0-35.0) g/dl RDW 13.0 (11.0-16.0) % Plt Count 171 (160-400) X10*3/uL MPV 9.6 (9.4-12.3) fL Immature Gran % (Auto) 0.1 (0.0-0.4) % Neut % (Auto) 31.0 L (45-73) % Lymph % (Auto) 58.7 H (20-40) % [place] % (Auto) 7.9 (2-11) % Eos % (Auto) 1.9 (0-4) % Baso % (Auto) 0.4 (0-2) % Lymph # (Auto) 4.4 (1.2-4.9) X10*3/uL [place] # (Auto) 0.6 (0.1-1.2) X10*3/uL Eos # (Auto) 0.1 (0.0-0.4) X10*3/uL Baso # (Auto) 0.0 (0.0-0.2) X10*3/uL Abs Immat Gran (auto) 0.01 (0.00-0.03) X10*3/uL Absolute Neuts (auto) 2.3 (2.0-8.3) x10*3/uL Absolute Nucleated RBC 0.000 (0.0-0.012) X10*3/uL Nucleated RBC % (auto) 0.0 (0.0-0.2) /100WBC D-Dimer High Sensitivty < 150 NG/ML Sodium 139 (135-145) mmol/L Potassium 4.2 (3.3-5.1) mmol/L Chloride 104 (96-108) mmol/L Carbon Dioxide 27 (22-29) mmol/L Anion Gap 12 (12-20) BUN 13 (9-16) mg/dL Creatinine 0.87 (0.5-1.4) mg/dL Estim Creat Clear Calc 86.7 Estimated GFR > 60 Random Glucose 321 H (60-115) mg/dL Calcium 9.2 (8.4-10.2) mg/dL Total Bilirubin 0.5 (0.0-1.0) mg/dL Direct Bilirubin 0.2 (0.0-0.5) mg/dL AST 37 H (5-31) U/L ALT 48 H (0-31) U/L Alkaline Phosphatase 68 (39-117) U/L Troponin I High Sens < 2.7 (<3.5-17.0) ng/L B-Natriuretic Peptide < 10 (<100) pg/mL Total Protein 7.8 (6.5-8.0) g/dL Albumin 3.6 (3.5-5.0) g/dL Lipase 47 (8-78) U/L TSH 1.13 (0.32-4.0) uIU/mL Independent Interpretation I performed an independent interpretation of an: EKG, Plain X-Ray (no pneumonia) and CT Scan (no ICH) Interpretation: Rate: 109 Rhythm: sinus tachycardia Amity: left Normal P waves. Normal ELSA. Normal QRS complex. Poor R wave progression ST T wave : inverted t waves III and aVF, no CHRISTINE qTC: normal prior studies: unchanged 2020 The study has been interpreted contemporaneously by me. . Radiology Impression Discussion of test interpretation with radiology: I have reviewed the radiologist's reading. Independent Historian Clinical information obtained from an independent historian. History obtained from or confirmed by: Other (daughter) Discharge Plan Discharge Clinical Impression: Dizziness Chest pain Qualifiers: Chest pain type: precordial pain Qualified Code(s): R07.2 - Precordial pain Patient Disposition: Home, Self-Care Instructions: Chest Pain (ED), Dizziness (ED) Additional Instructions: you need to get an ECHO and stress test please follow up with cardiology, your CTA should also be monitored by neurology. I suspect your AM dizziness is a result of an issue with your CPAP please talk to your doctor about getting it checked out to see if this is the problem return for any numbness, weakness, change in vision, pain, worsening symptoms or any other concerns. CT/CT angio head neck IMPRESSION: 1. No acute intracranial findings. 2. High riding left jugular bulb, which is dehiscent into the left hypotympanum as well as with the adjacent left vestibular aqueduct, which can be correlated clinically for left-sided pulsatile tinnitus. 3. No acute arterial occlusion or hemodynamically significant stenosis within the head or neck. No intracranial saccular aneurysm or high flow vascular malformation. 4. Elongated and ossified styloid processes can be correlated clinically for signs of [place] syndrome. 5. Diffuse thyromegaly and glandular heterogeneity that can be correlated with thyroid function tests and further evaluated with thyroid ultrasound. troponin was flat and ddimer was normal, thyroid was normal as well. Prescriptions: No Action ondansetron HCl [Zofran] 4 mg tablet 4 mg PO Q8H PRN (Reason: nausea and vomiting) Qty: 10 0RF meclizine 25 mg tablet 25 mg PO TID PRN (Reason: dizziness) Qty: 14 0RF Referrals: Chin Mills MD [Physician] - (call for next appointment) Preston Wharton MD [Physician] - (call to schedule appointment)
[2023-05-23 00:43] LABS: D Dimer High Sensitivity < 150 NG/ML
[2023-05-23 00:50] LABS: Troponin-I High Sensitivity < 2.7 ng/L (<3.5-17.0)
[2023-05-23 00:52] LABS: Alanine Aminotransferase 48 U/L (0-31); Albumin Level 3.6 g/dL (3.5-5.0); Alkaline Phosphatase 68 U/L (39-117); Anion Gap 12 (12-20); Aspartate Amino Transferase 37 U/L (5-31); Bilirubin Direct 0.2 mg/dL (0.0-0.5); Bilirubin Total 0.5 mg/dL (0.0-1.0); Blood Urea Nitrogen 13 mg/dL (9-16); Calcium 9.2 mg/dL (8.4-10.2); Carbon Dioxide 27 mmol/L (22-29); Chloride 104 mmol/L (96-108); Glucose Random 321 mg/dL (60-115); Lipase 47 U/L (8-78); Potassium 4.2 mmol/L (3.3-5.1); Sodium 139 mmol/L (135-145); Total Protein 7.8 g/dL (6.5-8.0)
[2023-05-23 00:59] LABS: Creatinine Clr Calc Pharmacy 86.7; Estimated Glomerular Filt Rate > 60
[2023-05-23 01:01] VITALS: PULSE 111
[2023-05-23 01:20] LABS: B Type Natriuretic Peptide < 10 pg/mL (<100)
--- NOTE | 2023-05-23 01:24 | PC.NURSE ---
pt horacio dizziness at this time. ambulatory with steady gait to xray and back and then to ct scan.
[2023-05-23 01:33] VITALS: O2SAT 98
[2023-05-23] MEDS: iohexoL 350 MG/ML 100 ML INFUS..BTL 85 ML IV (01:35)
[2023-05-23 02:18] VITALS: BP 113/85; PULSE 111; RESP 16; O2SAT 94
[2023-05-23 02:55] LABS: TSH reflex Free T4 1.13 uIU/mL (0.32-4.0)
== END 2023-05-23 03:16 | disposition home or self-care (01) ==
PROVIDERS: Emergency Provider Emergency Medicine; PCP Internal Medicine
DX: R07.89 Other chest pain (principal); E11.9 Type 2 diabetes mellitus without complications; I10 Essential (primary) hypertension; M54.2 Cervicalgia; M79.602 Pain in left arm; R06.02 Shortness of breath; R42 Dizziness and giddiness; Z79.899 Other long term (current) drug therapy
CPT/HCPCS: 36415; 70496; 70498; 71045; 80048; 80076; 83690; 83880; 84443; 84484; 85025; 85379; 93005; 99284; 99285; Q9967